=== PATIENT | female | born 1965 | race African-American/Black ===

== ENCOUNTER 2020-10-22 09:25 | Inpatient (IN) | payer OTHER ==
[2020-10-22 10:23] VITALS: BMI 30.9
[2020-10-22] MEDS ORDERED: cloNIDine HCL 0.1 MG TABLET PO STA (10:30)
[2020-10-22] MEDS ORDERED: cloNIDine HCL 0.1 MG TABLET PO ONE (10:45)
[2020-10-22] MEDS ORDERED: MAGNESIUM HYDROX 2400MG/30ML ORAL SUSPENSION 30 ML CUP PO PRN (10:51)
[2020-10-22] MEDS ORDERED: NICOTINE POLACRILEX 2 MG GUM BUC PRN (10:51)
[2020-10-22] MEDS ORDERED: METHOCARBAMOL 500 MG TABLET PO PRN (10:51)
[2020-10-22] MEDS ORDERED: MAGNESIUM CITRATE 300 ML BOTTLE PO PRN (10:51)
[2020-10-22] MEDS ORDERED: BISMUTH SUBSALICYLATE 524 MG/30 ML UD PO PRN (10:51)
[2020-10-22] MEDS ORDERED: MENTHOL/PHENOL 1 EACH UD MM PRN (10:51)
[2020-10-22] MEDS ORDERED: ONDANSETRON *ODT* 4 MG TABLET SL PRN (10:51)
[2020-10-22] MEDS ORDERED: IBUPROFEN 400 MG TABLET (FP) PO PRN (10:51)
[2020-10-22] MEDS ORDERED: MAG HYDROX/AL HYDROX/SIMETH 30 ML UNIT-DOSE CUP PO PRN (10:51)
[2020-10-22] MEDS ORDERED: ACETAMINOPHEN 325 MG TABLET (FP) PO PRN (10:51)
[2020-10-22] MEDS ORDERED: ALBUTEROL SO4 HFA INHALER IH PRN (10:54)
[2020-10-22] MEDS ORDERED: METHADONE HCL 10 MG TABLET (FOR DETOX USE ONLY) PO ONE (11:45)
[2020-10-22] MEDS: PRENATAL VITAMINS W/ FOLIC ACID TABLET (FP) PO SCH (12:55)
[2020-10-22] MEDS: hydrOXYzine PAMOATE 25 MG CAPSULE (FP) PO SCH ×3 (12:59→22:22)
[2020-10-22 16:31] LABS: HEMATOCRIT 42.6 % (32.4-45.2); HEMOGLOBIN 14.1 GM/dL (10.7-15.3); MCH 34.2 pg (25.7-33.7); MCHC 33.1 g/dl (32.0-36.0); MEAN CELL VOLUME 103.1 fl (80-96); MEAN PLT VOLUME 7.8 fl (7.5-11.1); PLATELET COUNT 307 K/MM3 (134-434); RBC 4.14 M/mm3 (3.60-5.2); RDW 15.5 % (11.6-15.6); WHITE BLOOD COUNT 6.5 K/mm3 (4.0-10.0)
[2020-10-22 16:33] LABS: POTASSIUM 4.4 mmol/L (3.5-5.1)
[2020-10-22 16:43] LABS: BILIRUBIN,TOTAL 0.6 mg/dL (0.2-1); BLOOD UREA NITROGEN 12.8 mg/dL (7-18)
[2020-10-22 16:44] LABS: TOT PROT 8.6 g/dl (6.4-8.2)
[2020-10-22 16:45] LABS: CALCIUM 9.6 mg/dL (8.5-10.1); CREATININE 0.9 mg/dL (0.55-1.3)
[2020-10-22] MEDS: MOMETASONE FUROATE 220 MCG/IH INHALER IH SCH (22:21)
[2020-10-22] MEDS: THIAMINE HCL 100 MG TABLET (FP) PO SCH (22:22)
[2020-10-22] MEDS: MELATONIN 5 MG TABLETS PO SCH (22:23)
[2020-10-23] MEDS: cloNIDine HCL 0.1 MG TABLET PO PRN ×4 (07:04→21:31)
[2020-10-23] MEDS: hydrOXYzine PAMOATE 25 MG CAPSULE (FP) PO SCH (07:13)
[2020-10-23] MEDS ORDERED: METHADONE HCL 10 MG TABLET (FOR DETOX USE ONLY) ONE (08:40)
[2020-10-23] MEDS ORDERED: METHADONE HCL 5 MG TABLET (FOR DETOX USE ONLY) ONE (08:40)
[2020-10-23] MEDS ORDERED: METHADONE (DETOX) 20 MG, METHADONE (DETOX) 5 MG PO ONE (10:00)
[2020-10-23] MEDS: NICOTINE 21 MG/24 HOURS TOPICAL PATCH TD SCH (10:03)
[2020-10-23] MEDS: PRENATAL VITAMINS W/ FOLIC ACID TABLET (FP) PO SCH (10:03)
[2020-10-23] MEDS: metoPROLOL SUCCINATE 25 MG TAB.SR.24H (FP) PO SCH (10:03)
[2020-10-23] MEDS ORDERED: metoPROLOL SUCCINATE 25 MG TAB.SR.24H (FP) PO SCH (10:55)
[2020-10-23] MEDS: P-EPHED 60MG/TRIPROLIDI 2.5MG TABLET PO PRN (11:16)
[2020-10-23] MEDS: BACITRACIN 0.9 GM PACKET TP SCH (14:08)
[2020-10-23] MEDS: hydrOXYzine PAMOATE 25 MG CAPSULE (FP) PO PRN ×2 (17:26→22:01)
[2020-10-23] MEDS: MOMETASONE FUROATE 220 MCG/IH INHALER IH SCH (21:21)
[2020-10-23] MEDS: THIAMINE HCL 100 MG TABLET (FP) PO SCH (21:21)
[2020-10-23] MEDS: MELATONIN 5 MG TABLETS PO SCH (21:31)
[2020-10-24] MEDS: ACETAMINOPHEN 325 MG TABLET (FP) PO PRN (06:52)
[2020-10-24] MEDS: cloNIDine HCL 0.1 MG TABLET PO PRN (07:16)
[2020-10-24] MEDS: PRENATAL VITAMINS W/ FOLIC ACID TABLET (FP) PO SCH (09:27)
[2020-10-24] MEDS: metoPROLOL SUCCINATE 25 MG TAB.SR.24H (FP) PO SCH (09:27)
[2020-10-24] MEDS: NICOTINE 21 MG/24 HOURS TOPICAL PATCH TD SCH (09:28)
[2020-10-24] MEDS: hydrOXYzine PAMOATE 25 MG CAPSULE (FP) PO PRN ×2 (09:30→17:58)
[2020-10-24] MEDS: BACITRACIN 0.9 GM PACKET TP SCH (09:30)
[2020-10-24] MEDS: P-EPHED 60MG/TRIPROLIDI 2.5MG TABLET PO PRN (09:31)
[2020-10-24] MEDS ORDERED: METHADONE HCL 10 MG TABLET (FOR DETOX USE ONLY) PO ONE (10:00)
[2020-10-24] MEDS: diazePAM 5 MG TABLET PO PRN ×3 (11:20→23:54)
[2020-10-24] MEDS ORDERED: cloNIDine HCL 0.1 MG TABLET PO ONE (20:45)
[2020-10-24] MEDS: MELATONIN 5 MG TABLETS PO SCH (21:40)
[2020-10-24] MEDS: THIAMINE HCL 100 MG TABLET (FP) PO SCH (21:40)
[2020-10-24] MEDS: MOMETASONE FUROATE 220 MCG/IH INHALER IH SCH (21:41)
[2020-10-25] MEDS ORDERED: METHADONE HCL 5 MG TABLET (FOR DETOX USE ONLY) ONE (09:13)
[2020-10-25] MEDS ORDERED: METHADONE HCL 10 MG TABLET (FOR DETOX USE ONLY) ONE (09:13)
[2020-10-25] MEDS: BACITRACIN 0.9 GM PACKET TP SCH (09:49)
[2020-10-25] MEDS: PRENATAL VITAMINS W/ FOLIC ACID TABLET (FP) PO SCH (09:49)
[2020-10-25] MEDS: NICOTINE 21 MG/24 HOURS TOPICAL PATCH TD SCH (09:50)
[2020-10-25] MEDS: P-EPHED 60MG/TRIPROLIDI 2.5MG TABLET PO PRN (09:51)
[2020-10-25] MEDS ORDERED: METHADONE (DETOX) 10 MG, METHADONE (DETOX) 5 MG PO ONE (10:00)
[2020-10-25] MEDS: diazePAM 5 MG TABLET PO PRN ×2 (11:10→17:33)
[2020-10-25] MEDS: ACETAMINOPHEN 325 MG TABLET (FP) PO PRN (11:11)
[2020-10-25] MEDS: MELATONIN 5 MG TABLETS PO SCH (21:34)
[2020-10-25] MEDS: MOMETASONE FUROATE 220 MCG/IH INHALER IH SCH (21:35)
[2020-10-25] MEDS: THIAMINE HCL 100 MG TABLET (FP) PO SCH (21:35)
[2020-10-26] MEDS ORDERED: diazePAM 5 MG TABLET PO PRN (00:01)
[2020-10-26 06:37] VITALS: BP 128/71; PULSE 51; TEMP 97.3
[2020-10-26] MEDS ORDERED: METHADONE HCL 10 MG TABLET (FOR DETOX USE ONLY) PO ONE (10:00)
[2020-10-27] MEDS ORDERED: METHADONE HCL 5 MG TABLET (FOR DETOX USE ONLY) PO ONE (06:00)
== END 2020-10-26 07:47 | disposition home or self-care (01) | DRG 773 ==
LOC: YASAS 09:25 → Y3N 12:11
PROVIDERS: ADMIT Allergy & Immunology; ATTEND Allergy & Immunology
PROC: HZ2ZZZZ Detoxification Services for Substance Abuse Treatment (ICD-10-PCS; principal; 2020-10-22)
DX: F11.23 Opioid dependence with withdrawal (principal); F10.20 Alcohol dependence, uncomplicated; F17.210 Nicotine dependence, cigarettes, uncomplicated; I10 Essential (primary) hypertension; J45.909 Unspecified asthma, uncomplicated; E66.9 Obesity, unspecified; Z68.30 Body mass index [BMI] 30.0-30.9, adult
CPT/HCPCS: 36415; 71046-TC-FY; 80053; 81025; 85027; 86780; 93005; 93010; C9803; J0735; U0003